=== PATIENT | female | born 1985 | race Hispanic/Latino ===

== ENCOUNTER 2016-07-22 07:14 | Emergency (ER) | payer MEDICAID ==
[2016-07-22 07:20] VITALS: TEMP 97; BMI 20.7
[2016-07-22] MEDS ORDERED: Sodium Chloride 0.9% 1,000 ML IV STA (08:07)
--- NOTE | 2016-07-22 08:23 | ED PDOC ---
Lower Extremity Pain/Injury Time Seen by Provider: 07/22/16 07:36 Chief Complaint (Nursing): Lower Extremity Problem/Injury Chief Complaint (Provider): Leg Swelling History Per: Patient History/Exam Limitations: no limitations Onset/Duration Of Symptoms: Days (1 week) Current Symptoms Are (Timing): Still Present Severity: Moderate Additional Complaint(s): Lizeth Bender is a 30 year old female, with a past medical history of ulcerative colitis, that presents to the emergency department complaining of leg swelling, that the patient has been experiencing for 1 week. Patient reports that she has noticed pain to her legs bilaterally for the past 3 weeks that has been keeping her up at night, and notes that her swelling has recently gone down, but is concerned due to her pain persisting and believes that she might have contracted a "staph" infection, prompting her visit to the emergency department. Associated fever (at 101), rhinorrhea, and a sore throat are currently present. PMD: none specified Past Medical History Reviewed: Historical Data, Nursing Documentation, Vital Signs Vital Signs: Last Vital Signs Temp 97 F L 07/22/16 07:19 Pulse 85 07/22/16 07:19 Resp BP 115/60 07/22/16 07:19 Pulse Ox 99 07/22/16 07:19 - Medical History PMH: Crohn's Disease Denies: Chronic Kidney Disease Other PMH: Ulcerative Colitis - Surgical History Surgical History: Appendectomy, Tonsillectomy - Family History Family History: States: No Known Family Hx - Social History Current smoker - smoking cessation education provided: No Ex-Smoker (has not smoked in the last 12 months): No Alcohol: None Drugs: Denies - Home Medications Home Medications: Ambulatory Orders Medication Instructions Recorded Cyclobenzaprine [Cyclobenzaprine 10 mg PO BID #15 tab 07/22/16 HCl] Ibuprofen [Motrin Tab] 600 mg PO Q6 #30 tab 07/22/16 - Allergies Allergies/Adverse Reactions: Allergies Allergy/AdvReac Type Severity Reaction Status Date / Time nut - unspecified Allergy RASH Verified 05/31/16 16:43 Penicillins Allergy RASH Verified 05/30/16 19:15 Review of Systems ROS Statement: Except As Marked, All Systems Reviewed And Found Negative Constitutional: Positive for: Fever ENT: Positive for: Nose Discharge (rhinorrhea, non-bloody), Throat Pain Cardiovascular: Positive for: Edema (b/l legs) Musculoskeletal: Positive for: Leg Pain (b/l) Physical Exam - Reviewed Nursing Documentation Reviewed: Yes Vital Signs Reviewed: Yes - Physical Exam Appears: Positive for: Non-toxic, No Acute Distress Head Exam: Positive for: ATRAUMATIC, NORMOCEPHALIC Skin: Positive for: Normal Color, Warm, Dry ENT: Positive for: Normal ENT Inspection, Pharynx Is (hyperemic), Pharyngeal Erythema. Negative for: Tonsillar Exudate, Tonsillar Swelling Neck: Positive for: Normal, Painless ROM Cardiovascular/Chest: Positive for: Regular Rate, Rhythm. Negative for: Murmur Respiratory: Positive for: Normal Breath Sounds. Negative for: Respiratory Distress Extremity: Positive for: Normal ROM, Tenderness, Calf Tenderness (b/l). Negative for: Swelling Neurologic/Psych: Positive for: Alert, Oriented - Laboratory Results Result Diagrams: 07/22/16 08:50 07/22/16 08:50 - ECG O2 Sat by Pulse Oximetry: 99 (RA) Pulse Ox Interpretation: Normal Medical Decision Making Medical Decision Makin:36 Initial Impression: r/o rhabdomyolysis versus deep vein thrombosis and muscle cramps Initial Plan: * CBC * BMP * BNP * CPK * UA * Influenza A/B * Flexeril 10 mg PO * Sodium Chloride 0.9% 1,000 ml IV, 500 mls/hr * Reevaluation 1030AM: Pt. sleeping. Workup negative. Told pt. to f/u w/ PMD, return precautions given- worsening of pain, high fevers, chills, swelling, etc. Scribe Attestation: Documented by Del Mayer, acting as a scribe for Garth Fox MD. Provider Scribe Attestation: All medical record entries made by the Scribe were at my direction and personally dictated by me. I have reviewed the chart and agree that the record accurately reflects my personal performance of the history, physical exam, medical decision making, and the department course for this patient. I have also personally directed, reviewed, and agree with the discharge instructions and disposition. Disposition - Clinical Impression Clinical Impression: Leg pain - Patient ED Disposition Is Patient to be Admitted: No - Disposition Referrals: [facility] [Outside] [facility] [Outside] Disposition: Routine/Home Disposition Time: 10:51 Condition: IMPROVED Prescriptions: Cyclobenzaprine [Cyclobenzaprine HCl] 10 mg PO BID #15 tab Ibuprofen [Motrin Tab] 600 mg PO Q6 #30 tab Instructions: Leg Pain (ED)
[2016-07-22 08:57] LABS: BASO # 0.1 K/uL (0.0-0.2); BASO % 1.2 % (0.0-2.0); EOS # 0.1 K/uL (0.0-0.7); EOS % 2.1 % (0.0-4.0); HEMATOCRIT 40.9 % (34.0-47.0); LYMPH # 1.6 K/uL (1.0-4.3); LYMPH % 31.5 % (20.0-40.0); MEAN CELL VOLUME 97.2 fl (81.0-99.0); MEAN CORPUSCULAR HEMOGLOBIN 33.2 pg (27.0-31.0); MEAN CORPUSCULAR HGB CONC 34.1 g/dL (33.0-37.0); MEAN PLATELET VOLUME 6.9 fl (7.2-11.7); MONO # 0.8 K/uL (0.0-0.8); MONO % 14.4 % (0.0-10.0); NEUT # 2.7 K/uL (1.8-7.0); NEUT % 50.8 % (50.0-75.0); NRBC % 0.1 % (0.0-0.0); RED CELL DISTRIBUTION WIDTH 14.8 % (11.5-14.5); WHITE BLOOD COUNT 5.2 K/uL (4.8-10.8)
[2016-07-22 09:05] LABS: BLOOD UREA NITROGEN 9 mg/dl (7-17); CALCIUM 9.9 mg/dL (8.4-10.2); CARBON DIOXIDE 23 mmol/L (22-30); CHLORIDE 105 mmol/L (98-107); GFR AFRICAN-AMERICAN > 60; GLUCOSE,RANDOM 92 mg/dL (65-105); POTASSIUM 4.1 MMOL/L (3.6-5.0); SODIUM 145 mmol/l (132-148)
[2016-07-22 09:33] LABS: RBC URINE 1 /hpf (0-3); URINE BILIRUBIN NEGATIVE (NEGATIVE); URINE BLOOD SMALL (NEGATIVE); URINE COLOR STRAW (YELLOW); URINE GLUCOSE (UA) NEG (Normal); URINE KETONE NEGATIVE (NEGATIVE); URINE LEUKOCYTE ESTERASE NEG Leu/uL (Negative); URINE PROTEIN NEGATIVE (NEGATIVE); URINE UROBILINOGEN 0.2-1.0 mg/dL (0.2-1.0); WBC URINE < 1 /hpf (0-5)
--- NOTE | 2016-07-22 10:11 | US ---
PROCEDURE: Bilateral lower extremity venous duplex Doppler. HISTORY: r/o DVT COMPARISON: None available. TECHNIQUE: Bilateral common femoral, superficial femoral, popliteal and posterior tibial veins were evaluated. Flow was assessed with color Doppler, compressibility, assessment of phasic flow and augmentation response. FINDINGS: COMMON FEMORAL VEIN: Right CFV: Unremarkable. Left CFV: Unremarkable. SUPERFICIAL FEMORAL VEIN: Right SFV: Unremarkable. Left SFV: Unremarkable. POPLITEAL VEIN: Right Popliteal: Unremarkable. Left Popliteal: Unremarkable. POSTERIOR TIBIAL VEIN: Right PTV: Unremarkable. Left PTV: Unremarkable. OTHER FINDINGS: None. IMPRESSION: No evidence of deep venous thrombosis.
[2016-07-22 11:10] VITALS: BP 118/75; PULSE 75; RESP 16; O2SAT 100
== END 2016-07-22 11:15 | disposition home or self-care (01) ==
LOC: H.ER 07:14
DX: R60.0 Localized edema (principal); K50.90 Crohn's disease, unspecified, without complications; Z87.891 Personal history of nicotine dependence; Z88.0 Allergy status to penicillin; J02.9 Acute pharyngitis, unspecified

== ENCOUNTER 2016-08-07 16:52 | Inpatient (IN) | payer MEDICAID ==
[2016-08-07 16:52] VITALS: BMI 20.7
--- NOTE | 2016-08-07 18:05 | ED PDOC ---
HPI:STROKE - Time Time: 17:18 - Historian Historian: Patient - Chief Complaint Chief Complaint: Numbness (right side: right side of her face, right upper arm, right thigh) - Onset Date: 08/07/16 Time: 08:00 Onset: Hours (10x hours prior to arrival) - Timing Timing: Currently Symptomatic, Constant - Context Context: Other (patient woke up with right sided numbness) - Location Locate right:: Face - Radiation Radiation: None - TPA Positive for Contraindication: Yes Reason tPA is not being Administered: out of window for TPA. - Notes: Notes:: 30 year old female with a pertinent medical history of ulcerative colitis (not taking medication for it) presents to the ED with complaints of right sided numbness that she noticed this morning when she woke up 10x hours prior to arrival. She reports having numbness on the right side of her face, her right upper arm, and her right thigh. She denies having paresthesias anywhere else. Noted: patient has right side facial asymmetry. She reports that the right side of her face feels stiff. She also reports having dizziness since this morning ( that also started when she woke up). She denies having a headache, difficulty with speech or ambulation, weakness of her right arm or leg, and chest pain. Of note: Patient also reports having bilateral leg pain and swelling for 2x month. She reports coming to the ED one time where her dopplers were negative for any abnormalities. Patient also mentions having rash all over her body for 1x month. She reports that it is not itchy and not painful. Patient was admitted to the ED this year for a UTI and colitis. Patient reports having travelled to [place] 2x months ago and leg swelling and rash started slowly after. PMD: Patient does not have a PMD. NIHSS Stroke Scale - Date/Time Evaluation Performed Date Performed: 08/07/16 Time Performed: 17:18 When Was NIHSS Performed: Baseline - How Severe is the Stroke Level of Consciousness: 0=Alert LOC to Questions: 0=Both comments correct LOC to commands: 0=Obeys both correctly Best Gaze: 0=Normal Visual: 0=No visual loss Facial: 1=Minor asymmetry Motor Arm - Left: 0=No drift Motor Arm - Right: 0=No drift Motor Leg - Left: 0=No drift Motor Leg - Right: 0=No drift Limb Ataxia: 0=Absent Sensory: 1=Mild to moderate loss Best Language: 0=No aphasia Dysarthia: 0=Normal articulation Extinction & Inattention (Neglect): 0=Normal, no object Score: 2 rTPA Inclusion/Exclusion - Refusal of Treatment Patient Refused Treatment: No - Inclusion Criteria for Altepase Patient is 18 years or Older: Yes The Clinical Diagnosis of Ischemic Stroke That is Causing a Potentially Disabling Neurological Deficit: Yes Time of Onset is Well Established to be Less Than 270 Minute Before Treatment Would Begin: No Risk/Benefit Discussed With Patient/Family Member Present: No Past Medical History Reviewed: Historical Data, Nursing Documentation, Vital Signs Vital Signs: Last Vital Signs Temp 97.9 F 08/07/16 17:09 Pulse 78 08/07/16 17:09 Resp 18 08/07/16 17:09 BP 125/86 08/07/16 17:09 Pulse Ox 100 08/07/16 17:09 - Medical History PMH: Crohn's Disease Denies: Chronic Kidney Disease Other PMH: ulcerative colitis - Surgical History Surgical History: Appendectomy, Tonsillectomy - Family History Family History: States: Unknown Family Hx - Social History Alcohol: None Drugs: Denies - Home Medications Home Medications: Ambulatory Orders Medication Instructions Recorded Cyclobenzaprine [Cyclobenzaprine 10 mg PO BID #15 tab 07/22/16 HCl] Ibuprofen [Motrin Tab] 600 mg PO Q6 #30 tab 07/22/16 - Allergies Allergies/Adverse Reactions: Allergies Allergy/AdvReac Type Severity Reaction Status Date / Time nut - unspecified Allergy RASH Verified 08/07/16 17:14 Penicillins Allergy RASH Verified 08/07/16 17:14 Review of Systems ROS Statement: Except As Marked, All Systems Reviewed And Found Negative Constitutional: Negative for: Fever Cardiovascular: Negative for: Chest Pain Musculoskeletal: Positive for: Leg Pain (bilateral leg pain) Skin: Positive for: Rash (all over body. not painfuk, not itchy.) Neurological: Positive for: Numbness (right side of patient's face, right upper arm, right thigh.), Dizziness. Negative for: Weakness, Change in Speech, Headache Physical Exam - Reviewed Nursing Documentation Reviewed: Yes Vital Signs Reviewed: Yes - Physical Exam Appears: Positive for: Well, Non-toxic, No Acute Distress Head Exam: Positive for: ATRAUMATIC, NORMOCEPHALIC Skin: Positive for: Warm, Dry, Rash (all over body. non erythematous. no macules , no pustules, no vesicles, no hives.) Eye Exam: Positive for: EOMI, PERRL. Negative for: Nystagmus ENT: Positive for: Normal ENT Inspection Neck: Positive for: Painless ROM, Supple Cardiovascular/Chest: Positive for: Regular Rate, Rhythm Respiratory: Positive for: Normal Breath Sounds. Negative for: Wheezing, Respiratory Distress Gastrointestinal/Abdominal: Positive for: Normal Exam, Soft. Negative for: Tenderness Extremity: Positive for: Normal ROM. Negative for: Swelling (legs not swollen) Neurologic/Psych: Positive for: Alert, Oriented (3x), Motor/Sensory Deficits, Cerebellar Tests (FTN normal), Gait (steady), Facial Droop (mild), Other ( decreased sensitivity to right side of te face. Mild facial assymmetry. weakness closing right eye. minor paralysis. Decreased sensation in right ar and right thigh.) - Laboratory Results Result Diagrams: 08/07/16 18:14 08/07/16 18:14 - ECG O2 Sat by Pulse Oximetry: 100 (RA) Pulse Ox Interpretation: Normal Medical Decision Making Medical Decision Makin:18 Initial impression: 30 year old female with right sided paresthesias. Differential diagnoses include but are not limited to CVA, MS, less likely but still considered Lawrence Palsy and peripheral neuropathy. Differential diagnoses for rash and leg swelling and pain include but are not limited to extraintestinal presentation of ulcerative colitis. Also consider West Nile virus and Lyme disease. Initial plan: * CT head w//o contrast * BMP * udip * CBC * lyme disease AB, IB * [place] AB, SER * urinalysis * reevaluation 18:49 CT head w/o IV contrast read and reviewed by radiologist. FINDINGS: Brain: No acute intracranial hemorrhage. No abnormal extra-axial fluid collection. No herniation. Patent basal cisterns. Preserved morton-white matter differentiation. No evidence of acute ischemia. No evident intracranial mass. Ventricles: No hydrocephalus. Bones/joints: No destructive calvarial lesion. Soft tissues: No acute findings. Sinuses: The imaged paranasal sinuses are clear. Mastoid air cells: The mastoid air cells are clear. Orbits: No evident acute abnormality of the intraorbital contents. IMPRESSION: No acute findings. If clinically warranted, Brain CT Perfusion or Brain MRI with diffusion-weighted imaging would be more sensitive for the detection of acute ischemia. 20:20] Discussed case and CT findings with (neurology felt carbonizer) who recommends the patient have an MRI (brain) and receive aspirin and steroids. Agree that she is not a candidate for TPA. Patient will be admitted under hospitalist Dr. Ray. Patient agrees to plan. Scribe Attestation: Documented by Monserrat Gibson, acting as a scribe for Vanna Farnsworth MD. Provider Scribe Attestation: All medical record entries made by the Scribe were at my direction and personally dictated by me. I have reviewed the chart and agree that the record accurately reflects my personal performance of the history, physical exam, medical decision making, and the department course for this patient. I have also personally directed, reviewed, and agree with the discharge instructions and disposition. Disposition - Clinical Impression Clinical Impression: Numbness on right side - Patient ED Disposition Is Patient to be Admitted: Yes Discussed With DrKaykay: Jayson Ray Doctor Will See Patient In The: ED Counseled Patient/Family Regarding: Studies Performed, Diagnosis - Disposition Disposition Time: 20:20 Condition: FAIR - Pt Status Changed To: Hospital Disposition Of: Observation - POA Present On Arrival: None
[2016-08-07 18:19] LABS: BASO # 0.1 K/uL (0.0-0.2); BASO % 1.5 % (0.0-2.0); EOS # 0.1 K/uL (0.0-0.7); EOS % 1.1 % (0.0-4.0); HEMATOCRIT 39.2 % (34.0-47.0); LYMPH # 1.1 K/uL (1.0-4.3); LYMPH % 21.4 % (20.0-40.0); MEAN CELL VOLUME 97.4 fl (81.0-99.0); MEAN CORPUSCULAR HEMOGLOBIN 32.5 pg (27.0-31.0); MEAN CORPUSCULAR HGB CONC 33.3 g/dL (33.0-37.0); MEAN PLATELET VOLUME 6.9 fl (7.2-11.7); MONO # 0.5 K/uL (0.0-0.8); MONO % 9.5 % (0.0-10.0); NEUT # 3.4 K/uL (1.8-7.0); NEUT % 66.5 % (50.0-75.0); NRBC % 0.3 % (0.0-0.0); RED CELL DISTRIBUTION WIDTH 15.1 % (11.5-14.5); WHITE BLOOD COUNT 5.1 K/uL (4.8-10.8)
[2016-08-07 18:22] LABS: RBC URINE 3 /hpf (0-3); URINE BACTERIA OCC (<OCC); URINE BILIRUBIN NEGATIVE (NEGATIVE); URINE BLOOD NEGATIVE (NEGATIVE); URINE COLOR YELLOW (YELLOW); URINE GLUCOSE (UA) NEG (Normal); URINE KETONE NEGATIVE (NEGATIVE); URINE LEUKOCYTE ESTERASE NEG Leu/uL (Negative); URINE PROTEIN NEGATIVE (NEGATIVE); URINE UROBILINOGEN 0.2-1.0 mg/dL (0.2-1.0); WBC URINE 2 /hpf (0-5)
[2016-08-07 18:25] LABS: CHLORIDE 99 mmol/L (98-107)
[2016-08-07 18:26] LABS: SODIUM 140 mmol/l (132-148)
[2016-08-07 18:28] LABS: GFR AFRICAN-AMERICAN > 60
[2016-08-07 18:29] LABS: BLOOD UREA NITROGEN 12 mg/dl (7-17); CALCIUM 10.2 mg/dL (8.4-10.2); CARBON DIOXIDE 22 mmol/L (22-30); GLUCOSE,RANDOM 82 mg/dL (65-105)
[2016-08-07 18:35] LABS: POTASSIUM 6.3 MMOL/L (3.6-5.0)
--- NOTE | 2016-08-07 21:32 | CP.PCM.HP ---
History of Present Illness - History of Present Illness History of Present Illness: PCP: None Chief Complaint: Numbness to Right face, upper and lower extremities HPI: 30 years old female who travelled to [place] 2 months ago has Hx of ulcerative Colitis not on medication, UTI and Cervical cancer s/p Radio and Chemo therapy, comes with a one day hx of constant Numbness to the right face, right upper extremity and the right thigh. She awoke with dizziness, the numbness and blurring of the right eye. She has been having painful rashes that appear and disappear to both calf muscles with swelling at the right side for months. Also she refers easily bruising, Stool with blood and breast milk production. No headaches, facial droop, abnormal speech , fever, nor weakness. PMH: Ulcerative Colitis not on medication: Aspiration Pneumonia in 2007; Cervical cancer dx 2012 with 35 radiation treatment and 2 cycles of Chemotherapy , and in Remission 2014 PSH: Appendectomy< Tonsillectomy SH: No cigaret smoking; occasional Alcohol; No illegal drugs; Live alone; works as a recuitor and immigrant outbound sales consultant FH: No known family history Allergies: PCN; Nuts Present on Admission - Present on Admission Any Indicators Present on Admission: No History of DVT/PE: No History of Uncontrolled Diabetes: No Urinary Catheter: No Decubitus Ulcer Present: No Review of Systems - Constitutional Constitutional: absent: Anorexia, Chills, Fatigue, Fever, Frequent Falls, Headache, Weakness - EENT Eyes: Blurred Vision. absent: Diplopia, Floaters, Requires Corrective Lenses, Sees Flashes Ears: absent: Decreased Hearing, Ear Discharge, Ear Pain, Tinnitus Nose/Mouth/Throat: absent: Epistaxis, Nasal Congestion, Nasal Discharge, Sinus Pain, Sinus Pressure - Breasts Breasts: Nipple Discharge - Cardiovascular Cardiovascular: Dyspnea, Palpitations. absent: Chest Pain - Respiratory Respiratory: Dyspnea. absent: Cough, Wheezing, Chest Congestion - Gastrointestinal Gastrointestinal: Hematochezia. absent: Abdominal Pain, Constipation, Diarrhea , Nausea, Vomiting - Genitourinary Genitourinary: absent: Dysuria, Flank Pain, Hematuria - Musculoskeletal Musculoskeletal: Myalgias, Numbness. absent: Back Pain - Integumentary Integumentary: Rash, Skin Pain, Swelling. absent: Skin Ulcer, Sores, Striae Additional comments: swelling of the right calf muscle - Neurological Neurological: Dizziness. absent: Confusion, Focal Weakness, Headaches - Psychiatric Psychiatric: absent: Anxiety, Depression, Panic Attacks - Endocrine Endocrine: absent: Palpitations, Polydipsia, Polyphagia, Polyuria - Hematologic/Lymphatic Hematologic: Easy Bruising Past Patient History - Past Medical History & Family History Past Medical History?: Yes - Past Social History Smoking Status: Light Smoker < 10 Cigarettes Daily Chewing Tobacco Use: No Cigar Use: No Alcohol: None Drugs: Denies Home Situation {Lives}: Alone - CARDIAC Hx Cardiac Disorders: No - PULMONARY Hx Respiratory Disorders: No - NEUROLOGICAL Hx Neurological Disorder: No - HEENT Hx HEENT Problems: No - RENAL Hx Chronic Kidney Disease: No - ENDOCRINE/METABOLIC Hx Endocrine Disorders: No - HEMATOLOGICAL/ONCOLOGICAL Hx Blood Disorders: No - INTEGUMENTARY Hx Dermatological Problems: No - MUSCULOSKELETAL/RHEUMATOLOGICAL Hx Musculoskeletal Disorders: No Hx Falls: No - GASTROINTESTINAL Hx Colitis: Yes (Ulcerative colitis) - GENITOURINARY/GYNECOLOGICAL Hx Genitourinary Disorders: Yes Hx Cervical Cancer: Yes (NOVEMBER 06 2012, REMISSION JULY OF 2014) - PSYCHIATRIC Hx Psychophysiologic Disorder: No Hx Substance Use: No - SURGICAL HISTORY Hx Appendectomy: Yes Hx Tonsillectomy: Yes - ANESTHESIA Hx Anesthesia: Yes Hx Anesthesia Reactions: No Hx Malignant Hyperthermia: No Meds Allergies/Adverse Reactions: Allergies Allergy/AdvReac Type Severity Reaction Status Date / Time nut - unspecified Allergy RASH Verified 08/07/16 17:14 Penicillins Allergy RASH Verified 08/07/16 17:14 Physical Exam - Constitutional Appears: No Acute Distress - Head Exam Head Exam: ATRAUMATIC, NORMAL INSPECTION, NORMOCEPHALIC - Eye Exam Eye Exam: EOMI, Normal appearance Pupil Exam: NORMAL ACCOMODATION, PERRL - ENT Exam ENT Exam: Mucous Membranes Moist, Normal Exam, Normal External Ear Exam, Normal Oropharynx - Neck Exam Neck exam: Positive for: Full Rom, Normal Inspection. Negative for: Lymphadenopathy, Tenderness - Respiratory Exam Respiratory Exam: Clear to Auscultation Bilateral. absent: Rales, Rhonchi, Wheezes - Cardiovascular Exam Cardiovascular Exam: REGULAR RHYTHM, RRR, +S1, +S2. absent: Gallop, JVD - GI/Abdominal Exam GI & Abdominal Exam: Normal Bowel Sounds, Soft. absent: Mass, Organomegaly, Tenderness - Rectal Exam Rectal Exam: Deferred - Extremities Exam Extremities exam: Positive for: calf tenderness, full ROM. Negative for: pedal edema - Back Exam Back exam: NORMAL INSPECTION. absent: CVA tenderness (L), CVA tenderness (R) - Neurological Exam Neurological exam: Alert, CN II-XII Intact, Oriented x3, Reflexes Normal - Psychiatric Exam Psychiatric exam: Normal Affect, Normal Mood - Skin Skin Exam: Dry, Intact, Warm Additional comments: Non blanching Erythematous-papular rash diffuse at both calf muscles. Right shoulder with area healing Ecchymosis 8cm the largest diameter. Posterior left hand with erythema 2cm in diameter, non blanching, non tender. Results - Vital Signs Recent Vital Signs: Last Vital Signs Temp 97.9 F 08/07/16 17:09 Pulse 80 08/07/16 21:20 Resp 18 08/07/16 17:09 BP 121/77 08/07/16 21:20 Pulse Ox 100 08/07/16 21:18 - Labs Result Diagrams: 08/07/16 18:14 08/08/16 01:00 - Imaging and Cardiology CT scan - head Status: Report reviewed by me Additional comment: No Acute finding. Assessment & Plan - Assessment and Plan (Free Text) Assessment: #. Right side Paresthesias #. Ulcerative Colitis #. Skin Rashes #. Breast Milk Production #. hx ov Cervical cancer Plan: 30 years old female who travelled to [place] 2 months ago has Hx of ulcerative Colitis, Cervical cancer s/p Radio and Chemo therapy, comes with a one day hx of constant Numbness to the right face, right upper extremity and the right thigh. She awoke with dizziness, the numbness and blurring of the right eye. #. Right side Paresthesias with blurring right eye. r/o CVA vs Multiple sclerosis. Electrolyte abnormality less likely - Consult Dr Awad neurology - Neurology Ordered Acyclovir and steroid - MRI brain for the AM #. Ulcerative Colitis not on treatment - Consult Dr Castro GI #. Transaminitis - Follow LFT #. Skin Rashes most probably secondary to the Ulcerative colitis - Patient started on steroids #. Breast Milk Production. Etiology unclear - MRI of Brain will show if Pituitary tumor is present - Follow Prolactin level #. hx of Cervical cancer s/p Chemo and Radio therapy #. DVT Prophylaxis with SCD #.Code status: Ful - Date & Time Date: 08/07/16 Time: 21:32
[2016-08-08 01:35] LABS: ALB/GLOB RATIO 1.3 (1.0-2.1); BILIRUBIN,TOTAL 0.7 mg/dl (0.2-1.3); POTASSIUM 3.8 MMOL/L (3.6-5.0); TOTAL PROTEIN 9.8 G/DL (6.3-8.2)
[2016-08-08 08:42] LABS: ALB/GLOB RATIO 1.3 (1.0-2.1); ALKALINE PHOSPHATASE 110 U/L (38-126); ALT/SGPT 101 U/L (9-52); AST/SGOT 156 U/L (14-36); BILIRUBIN,TOTAL 0.9 mg/dl (0.2-1.3); BLOOD UREA NITROGEN 15 mg/dl (7-17); CALCIUM 10.5 mg/dL (8.4-10.2); CARBON DIOXIDE 24 mmol/L (22-30); CHLORIDE 97 mmol/L (98-107); GFR AFRICAN-AMERICAN > 60; GLUCOSE,RANDOM 128 mg/dL (65-105); POTASSIUM 4.8 MMOL/L (3.6-5.0); SODIUM 139 mmol/l (132-148); TOTAL PROTEIN 9.8 G/DL (6.3-8.2)
--- NOTE | 2016-08-08 08:49 | CT ---
PROCEDURE: CT HEAD WITHOUT CONTRAST. HISTORY: numbness on right side COMPARISON: None available. TECHNIQUE: Axial computed tomography images were obtained through the head/brain without intravenous contrast. Radiation dose: Total exam DLP = 877.46 mGy-cm. This CT exam was performed using one or more of the following dose reduction techniques: Automated exposure control, adjustment of the mA and/or kV according to patient size, and/or use of iterative reconstruction technique. FINDINGS: HEMORRHAGE: No intracranial hemorrhage. BRAIN: No mass effect or edema. No atrophy or chronic microvascular ischemic changes. VENTRICLES: Unremarkable. No hydrocephalus. CALVARIUM: Unremarkable. PARANASAL SINUSES: Unremarkable as visualized. No significant inflammatory changes. MASTOID AIR CELLS: Unremarkable as visualized. No inflammatory changes. OTHER FINDINGS: None. IMPRESSION: No acute intracranial abnormalities. No significant findings to account for the clinical presentation. Concordant results (preliminary interpretation) provided by [facility]. Procedure Completed: 18:17. Preliminary ([facility]) Report: Dictated and Authenticated: 18:38. Final Interpretation: 08:27. August 08, 2016.
[2016-08-08 09:11] LABS: THYROID STIMULATING HORMONE 1.03 mIU/ML (0.46-4.68)
--- NOTE | 2016-08-08 11:11 | CP.PCM.PN ---
Subjective - Date & Time of Evaluation Date of Evaluation: 08/08/16 Time of Evaluation: 10:30 - Subjective Subjective: No fever no headache still with right sided numbness some decrease vision on the right no CP no SOB no abd pain no abnormal vaginal dicharge feels generalized aches Objective - Vital Signs/Intake and Output Vital Signs (last 24 hours): Temp Pulse Resp BP Pulse Ox 97.3 F L 73 18 101/66 99 08/08/16 07:54 08/08/16 07:54 08/08/16 07:54 08/08/16 07:54 08/08/16 07:54 - Medications Medications: Current Medications Acetaminophen (Tylenol 325mg Tab) 650 mg PO Q4 PRN PRN Reason: Pain, Mild (1-3) Last Admin: 08/08/16 00:55 Dose: 650 mg Acyclovir (Zovirax) 800 mg PO 5XD [facility] Last Admin: 08/08/16 08:18 Dose: 800 mg Alprazolam (Xanax) 0.25 mg PO ONCE ONE Stop: 08/08/16 11:10 Aspirin (Ecotrin) 81 mg PO DAILY [facility] Last Admin: 08/08/16 08:21 Dose: 81 mg Tramadol HCl (Ultram) 50 mg PO Q4 PRN PRN Reason: Pain, moderate (4-7) Last Admin: 08/08/16 08:17 Dose: 50 mg - Labs Labs: 08/08/16 08:00 PT 9.8 SECONDS (9.6-11.2) 08/08/16 01:00 INR 0.94 (0.92-1.08) 08/08/16 01:00 APTT 27.0 SECONDS (23.3-32.5) 08/08/16 01:00 - Constitutional Appears: No Acute Distress - Head Exam Head Exam: NORMAL INSPECTION, NORMOCEPHALIC - Eye Exam Eye Exam: EOMI, Normal appearance, PERRL Pupil Exam: NORMAL ACCOMODATION - ENT Exam ENT Exam: Mucous Membranes Moist, Normal External Ear Exam - Neck Exam Neck Exam: Full ROM. absent: Meningismus - Respiratory Exam Respiratory Exam: NORMAL BREATHING PATTERN. absent: Respiratory Distress - Cardiovascular Exam Cardiovascular Exam: REGULAR RHYTHM, +S1, +S2 - GI/Abdominal Exam GI & Abdominal Exam: Soft, Normal Bowel Sounds. absent: Tenderness - Extremities Exam Extremities Exam: Full ROM, Normal Capillary Refill. absent: Calf Tenderness, Pedal Edema - Back Exam Back Exam: Full ROM, NORMAL INSPECTION. absent: CVA tenderness (L), CVA tenderness (R), paraspinal tenderness, vertebral tenderness - Neurological Exam Neurological Exam: Alert - Psychiatric Exam Psychiatric exam: Anxious, Normal Affect, Normal Mood - Skin Skin Exam: Dry, Normal Color, Warm Additional comments: Some LE papular rash Assessment and Plan - Assessment and Plan (Free Text) Assessment: 30 years old female who travelled to [place] 2 months ago has Hx of ulcerative Colitis, Cervical cancer s/p Radio and Chemo therapy, comes with a 3days hx of constant Numbness to the right face, right upper extremity and the right thigh. She awoke with dizziness, the numbness and blurring of the right eye. #. Right sided Numbness with blurring right eye- needs further work up to determine etiology - Consult Dr Awad neurology - Neurology Ordered Acyclovir and steroid - MRI brain : negative - check HIV, B12, Folate, RPR, TSH -Lyme ab, West Nile ab, #. Ulcerative Colitis not on treatment - Consulted Dr Castro GI- discussed case , rec to ff up as outpt for further work up #. Transaminitis prob related to ETOH pt admits to having large amount of alcohol for 2 days prior to admission - Follow LFT - Hepatitis screen - US of abd - GI consulted #. Skin Rashes most probably secondary to the Ulcerative colitis - Patient started on steroids #. Breast Milk Production. Etiology unclear - MRI of Brain: neg pituitary tumor - Follow Prolactin level #. hx of Cervical cancer s/p Chemo and Radio therapy #. DVT Prophylaxis with SCD
--- NOTE | 2016-08-08 12:00 | MRI ---
PROCEDURE: MRI BRAIN WITHOUT CONTRAST HISTORY: numbness rihgt sided COMPARISON: None. TECHNIQUE: Multiplanar, multisequence MR images of the brain were obtained without intravenous contrast enhancement. FINDINGS: HEMORRHAGE: None DWI: No evidence of an acute or early subacute infarction. BRAIN PARENCHYMA: No mass effect or edema. No atrophy or chronic microvascular ischemic changes. VENTRICLES: Unremarkable. No hydrocephalus. CRANIUM: Unremarkable. ORBITS: Grossly unremarkable. PARANASAL SINUSES/MASTOIDS: Clear VASCULAR SYSTEM: Skull base flow voids intact. OTHER FINDINGS: None. IMPRESSION: Unremarkable non contrast enhanced MRI of the brain.
[2016-08-09 07:16] LABS: BASO % 0.7 % (0.0-2.0); EOS # 0.1 K/uL (0.0-0.7); EOS % 1.6 % (0.0-4.0); HEMATOCRIT 40.5 % (34.0-47.0); LYMPH # 1.6 K/uL (1.0-4.3); MEAN CELL VOLUME 97.9 fl (81.0-99.0); MEAN CORPUSCULAR HEMOGLOBIN 32.9 pg (27.0-31.0); MEAN CORPUSCULAR HGB CONC 33.6 g/dL (33.0-37.0); MEAN PLATELET VOLUME 7.5 fl (7.2-11.7); MONO # 0.4 K/uL (0.0-0.8); MONO % 6.8 % (0.0-10.0); NEUT # 3.5 K/uL (1.8-7.0); NEUT % 61.9 % (50.0-75.0); NRBC % 0.1 % (0.0-0.0); RED CELL DISTRIBUTION WIDTH 14.8 % (11.5-14.5); WHITE BLOOD COUNT 5.6 K/uL (4.8-10.8)
[2016-08-09 07:26] LABS: ALB/GLOB RATIO 1.4 (1.0-2.1); ALKALINE PHOSPHATASE 82 U/L (38-126); ALT/SGPT 91 U/L (9-52); AST/SGOT 142 U/L (14-36); BLOOD UREA NITROGEN 19 mg/dl (7-17); CARBON DIOXIDE 30 mmol/L (22-30); CHLORIDE 95 mmol/L (98-107); GFR AFRICAN-AMERICAN > 60; GLUCOSE,RANDOM 108 mg/dL (65-105); POTASSIUM 4.2 MMOL/L (3.6-5.0); SODIUM 140 mmol/l (132-148); TOTAL PROTEIN 8.6 G/DL (6.3-8.2)
--- NOTE | 2016-08-09 08:33 | CON ---
DATE: 08/08/2016 REFERRING PHYSICIAN: Dr. Mcpherson REASON FOR CONSULTATION: History of UC ____ diarrhea. This is a ellis 30-year-old female with history of recent travel to [place] about a couple months ago , has questionable history of UC, never been diagnosed, had cervical CA and radiation, UTIs. Now com es in with essentially ____ blurring of the right eye. Currently, her bowel movements have been the same for the past few months. No ____ bright red blood. Lying in bed, comfortable, in no apparent d istress. PAST MEDICAL HISTORY: As above. PAST SURGICAL HISTORY: As above. MEDICATIONS: Have been reviewed. All other systems have been reviewed and negative apart from the HPI. PHYSICAL EXAMINATION: VITAL SIGNS: Here in the hospital, grossly unremarkable. GENERAL: Pleasant, young female, lying in bed, comfortable, in no apparent distress. HEAD: Normocephalic, atraumatic. EYES: Pupils equally reactive to light bilaterally. No conjunctival pallor or icterus. NECK: Supple. Normal range of motion. No lymphadenopathy appreciated. LUNGS: Coarse breath sounds bilaterally. HEART: S1, S2, regular rate and rhythm, no murmurs. ABDOMEN: Soft, nontender, bowel sounds present. No rebound, no guarding. RECTAL: Deferred. EXTREMITIES: Pulses present bilaterally. SKIN: Warm, dry and intact. NEUROLOGIC: Alert and oriented x 3. LABORATORIES: Have been reviewed. WBCs 5.____, hemoglobin 13.____, hematocrit 39.2. INR is normal. LFTs are ____. ASSESSMENT AND PLAN: This is a 30-year-old female with questionable ulcerative colitis. Plan for ou tpatient colonoscopy. For now, MRI pending. Thank you for the consult. Roger Castro MD, PhD cc:Zully Flor MD [id number] TT: 08/08/2016 14:31:49 Confirmation # [id number] Dictation # [id number] en
[2016-08-09] MEDS ORDERED: Prenatal Multivit/Folic Acid/Iron Tab PO SCH (09:00)
--- NOTE | 2016-08-09 09:19 | CP.PCM.PN ---
Objective - Vital Signs/Intake and Output Vital Signs (last 24 hours): Temp Pulse Resp BP Pulse Ox 98.7 F 69 18 98/63 L 99 08/09/16 08:13 08/09/16 08:13 08/09/16 08:13 08/09/16 08:13 08/09/16 08:13 - Medications Medications: Current Medications Acetaminophen (Tylenol 325mg Tab) 650 mg PO Q4 PRN PRN Reason: Pain, Mild (1-3) Last Admin: 08/08/16 00:55 Dose: 650 mg Acyclovir (Zovirax) 800 mg PO 5XD [facility] Last Admin: 08/09/16 04:58 Dose: 800 mg Aspirin (Ecotrin) 81 mg PO DAILY [facility] Last Admin: 08/08/16 08:21 Dose: 81 mg Multivit/Folic Acid/Iron () 1 tab PO DAILY [facility] Tramadol HCl (Ultram) 50 mg PO Q4 PRN PRN Reason: Pain, moderate (4-7) Last Admin: 08/09/16 04:57 Dose: 50 mg - Labs Labs: 08/09/16 05:25 08/09/16 05:25 PT 9.8 SECONDS (9.6-11.2) 08/08/16 01:00 INR 0.94 (0.92-1.08) 08/08/16 01:00 APTT 27.0 SECONDS (23.3-32.5) 08/08/16 01:00
--- NOTE | 2016-08-09 10:48 | CON ---
DATE: 08/09/2016 REASON FOR CONSULTATION: Numbness of the right side. HISTORY OF PRESENTING ILLNESS: The patient is a 30-year-old female who came to the Emergency Room wi th complaint of right-sided numbness. This started about 2 days when she woke up. She started notic ing numbness in the right upper extremity on the right upper arm as well as right side of the face an d the right upper thigh laterally. She has these tingling sensations in these regions. She still fe els tingly on and off. She had some dizziness which is better now. She denies any focal weakness in arms or legs. She also complains that she has been feeling very tired and has some memory issues. Denies any other complaints. REVIEW OF SYSTEMS: Denies any headache, chest pain, shortness of breath, abdominal pain, constipatio n, diarrhea, dysuria, pyuria, cough, sputum production, skin rash, hallucinations. PAST MEDICAL HISTORY: Includes ulcerative colitis. MEDICATIONS AT HOME: None. CURRENT MEDICATIONS: Include aspirin, vitamin, tramadol, Tylenol p.r.n. and acyclovir. ALLERGIES: PENICILLIN AND NUTS. SOCIAL HISTORY: She denies smoking. Socially drinks alcohol. Denies use of any illicit drugs. FAMILY HISTORY: Reviewed and noncontributory to the case. PHYSICAL EXAMINATION: GENERAL: The patient is a young, pleasant female, lying on the bed, in no acute distress. VITAL SIGNS: Her blood pressure is 98/63, heart rate is 69 per minute, breathing at a rate of 16 per minute, temperature is 98.7 degrees Fahrenheit. HEENT: Head is normocephalic, atraumatic. NECK: Supple. There are no carotid bruits. LUNGS: Clear. CARDIOVASCULAR: S1, S2 audible. No murmurs. ABDOMEN: Soft and nontender, bowel sounds present. NEUROLOGIC EXAMINATION: MENTAL STATUS: The patient is awake, alert, oriented to time, place, person. Speech is fluent. Nam ing and repetition normal. Memory and cognition are intact. CRANIAL NERVES: Pupils are 4 mm bilaterally, reactive to light. Visual villagran are full. Extraocula r movements are intact. There is no facial asymmetry. Palate is upgoing bilaterally and tongue is m idline. MOTOR: Tone is normal. Power is 5/5 bilaterally in all extremities. Reflexes +2 and symmetrical. Plantars downgoing bilaterally. CEREBELLAR: [id number] shows no dysmetria. LABORATORIES: Reviewed, shows WBC of 5.6, hemoglobin 13.6, hematocrit 40.5 and platelets of 257. He r sodium is 140, potassium 4.2, chloride 95, carbon dioxide 30, BUN of 19, creatinine 0.8, and glucos e of 108. She had MRI of the brain, which shows unremarkable noncontrast enhanced MRI of the brain. IMPRESSION: 1. Tingling and numbness sensation in the right face and arm and leg. Rule out any cervical spine p athology responsible for patient's symptoms. 2. Status post dizziness, which is all better. RECOMMENDATIONS: 1. The patient to have MRI of the cervical spine without contrast. 2. If patient's symptoms continue, consider starting Neurontin, initially at 100 mg twice a day. 3. The patient also had TSH done, which is normal. Her vitamin B12 is 604. 4. Please continue other treatment and supportive care and if MRI of the cervical spine is negative, then she may be discharged with outpatient followup. Thank you for the opportunity to participate in the care of the patient. Gabe Talavera MD cc: [id number] TT: 08/09/2016 10:47:29 Confirmation # [id number] Dictation # [id number] en
--- NOTE | 2016-08-09 12:29 | US ---
HISTORY: Elevated LFT COMPARISON: None. TECHNIQUE: Sonographic evaluation of the right upper quadrant of the abdomen. FINDINGS: LIVER: Measures 17.4 cm in length. Hepatopedal blood flow. Fatty infiltration manifest ultrasonographically as increased echogenicity of the liver parenchyma. No mass. No intrahepatic bile duct dilatation. GALLBLADDER: Unremarkable. No gallstones. COMMON BILE DUCT: Measures 2.6 mm. No stones. No dilatation. PANCREAS: Unremarkable as visualized. No mass. No ductal dilatation. RIGHT KIDNEY: Measures 4.3 x 10.0 cm in length. Normal echogenicity. No calculus, mass, or hydronephrosis. AORTA: No aneurysmal dilatation. IVC: Unremarkable. OTHER FINDINGS: None . IMPRESSION: Hepatic steatosis. Otherwise no acute/ significant findings.
[2016-08-09 15:28] LABS: 18 KD (IGG) BAND Nonreactive; 23 KD (IGG) BAND Nonreactive; 23 KD (IGM) BAND Nonreactive; 28 KD (IGG) BAND Nonreactive; 30 KD (IGG) BAND Nonreactive; 39 KD (IGG) BAND Nonreactive; 39 KD (IGM) BAND Nonreactive; 41 KD (IGG) BAND Reactive; 41 KD (IGM) BAND Nonreactive; 45 KD (IGG) BAND Nonreactive; 58 KD (IGG) BAND Nonreactive; 66 KD (IGG) BAND Reactive; 93 KD (IGG) BAND Nonreactive; LYME DISEASE INTERP (IGG) Negative (Negative)
--- NOTE | 2016-08-09 15:55 | MRI ---
PROCEDURE: MR cervical spine 08/09/2016. HISTORY: Numbness. COMPARISON: No prior study available for comparison TECHNIQUE: Multiecho multiplanar sequences were performed through the cervical spine without the use of intravenous contrast. Note that the examination is limited by motion artifact. FINDINGS: The current study reveals no acute compression fractures no retropulsed fragments. The vertebral bodies exhibit normal stature. Vertebral bodies and facets normally aligned. Mild disc desiccation seen at the C2-C3 level. No disc herniation nor significant disc bulge. The central canal and exit foramina are adequate. At the C3-C4 level, there is adequate disc height and hydration. No disc herniation or significant disc bulge. The left facet joint is mildly overgrown compared the right side. The overall central canal and exit foramina adequate at this level. There is adequate disc height and hydration C4-C5 level. No disc herniation or significant disc bulge. Central canal and exit foramina appear adequate. At the C5-C6 level, there is minor age related disc desiccation with small central and bilateral disc bulge that indents the ventral surface of the thecal sac though does not cause significant canal compromise nor cord compression. The facets are slightly overgrown more so on the left side. Central canal and exit foramina appear adequate. At the C6-C7 level, there is adequate disc height and hydration. No disc herniation or significant disc bulge. Central canal and exit foramina are adequate. No intrinsic signal changes are seen within the visualized spinal cord. Cervicomedullary junction unremarkable. Impression: Limited motion degraded study. No acute compression fractures. Very minor disc bulging changes seen at the C5-C6 and C6-C7 levels without canal -foraminal stenosis or cord compression.
[2016-08-09 16:03] VITALS: BP 105/71; PULSE 78; RESP 20; TEMP 98.4; O2SAT 99
--- NOTE | 2016-08-09 16:53 | CP.PCM.DIS ---
Provider - Provider Date of Admission: 08/08/16 15:24 Attending physician: Jayson Ray Consults: GI: Dr Castro Neuro: Dr Talavera Time Spent in preparation of Discharge (in minutes): 35 Diagnosis - Discharge Diagnosis (1) Numbness on right side Status: Acute (2) IBD (inflammatory bowel disease) Status: Chronic (3) Abnormal LFTs (liver function tests) Status: Acute Hospital Course - Lab Results Lab Results: Most Recent Lab Values WBC 5.6 K/uL (4.8-10.8) 08/09/16 05:25 RBC 4.14 Mil/uL (3.80-5.20) 08/09/16 05:25 Hgb 13.6 g/dL (12.0-16.0) 08/09/16 05:25 Hct 40.5 % (34.0-47.0) 08/09/16 05:25 MCV 97.9 fl (81.0-99.0) 08/09/16 05:25 MCH 32.9 pg (27.0-31.0) H 08/09/16 05:25 MCHC 33.6 g/dL (33.0-37.0) 08/09/16 05:25 RDW 14.8 % (11.5-14.5) H 08/09/16 05:25 Plt Count 257 K/uL (130-400) 08/09/16 05:25 MPV 7.5 fl (7.2-11.7) 08/09/16 05:25 Neut % (Auto) 61.9 % (50.0-75.0) 08/09/16 05:25 Lymph % (Auto) 29.0 % (20.0-40.0) 08/09/16 05:25 [place] % (Auto) 6.8 % (0.0-10.0) 08/09/16 05:25 Eos % (Auto) 1.6 % (0.0-4.0) 08/09/16 05:25 Baso % (Auto) 0.7 % (0.0-2.0) 08/09/16 05:25 Neut # 3.5 K/uL (1.8-7.0) 08/09/16 05:25 Lymph # 1.6 K/uL (1.0-4.3) 08/09/16 05:25 [place] # 0.4 K/uL (0.0-0.8) 08/09/16 05:25 Eos # 0.1 K/uL (0.0-0.7) 08/09/16 05:25 Baso # 0.0 K/uL (0.0-0.2) 08/09/16 05:25 PT 9.8 SECONDS (9.6-11.2) 08/08/16 01:00 INR 0.94 (0.92-1.08) 08/08/16 01:00 APTT 27.0 SECONDS (23.3-32.5) 08/08/16 01:00 Sodium 140 mmol/l (132-148) 08/09/16 05:25 Potassium 4.2 MMOL/L (3.6-5.0) 08/09/16 05:25 Chloride 95 mmol/L (98-107) L 08/09/16 05:25 Carbon Dioxide 30 mmol/L (22-30) 08/09/16 05:25 Anion Gap 19 (10-20) 08/09/16 05:25 BUN 19 mg/dl (7-17) H 08/09/16 05:25 Creatinine 0.8 mg/dL (0.7-1.2) 08/09/16 05:25 Est GFR ( Amer) > 60 08/09/16 05:25 Est GFR (Non-Af Amer) > 60 08/09/16 05:25 Random Glucose 108 mg/dL (65-105) H 08/09/16 05:25 Calcium 10.0 mg/dL (8.4-10.2) 08/09/16 05:25 Total Bilirubin 1.0 mg/dl (0.2-1.3) 08/09/16 05:25 Direct Bilirubin 0.3 mg/ml (0.0-0.4) 08/08/16 01:00 AST 142 U/L (14-36) H 08/09/16 05:25 ALT 91 U/L (9-52) H 08/09/16 05:25 Alkaline Phosphatase 82 U/L (38-126) 08/09/16 05:25 Total Protein 8.6 G/DL (6.3-8.2) H 08/09/16 05:25 Albumin 5.0 g/dL (3.5-5.0) 08/09/16 05:25 Globulin 3.6 gm/dL (2.2-3.9) 08/09/16 05:25 Albumin/Globulin Ratio 1.4 (1.0-2.1) 08/09/16 05:25 Vitamin B12 604 pg/mL (239-931) 08/08/16 08:00 Folate 11.0 ng/mL 08/08/16 08:00 TSH 3rd Generation 1.03 mIU/ML (0.46-4.68) 08/08/16 08:00 Prolactin 14.0 ng/mL (3.0-18.9) 08/08/16 08:00 Urine Color Yellow (YELLOW) 08/07/16 18:14 Urine Clarity Slighty-cloudy (Clear) 08/07/16 18:14 Urine pH 7.0 (5.0-8.0) 08/07/16 18:14 Ur Specific [place]gan 1.010 (1.003-1.030) 08/07/16 18:14 Urine Protein Negative mg/dL (NEGATIVE) 08/07/16 18:14 Urine Glucose (UA) Neg mg/dL (Normal) 08/07/16 18:14 Urine Ketones Negative mg/dL (NEGATIVE) 08/07/16 18:14 Urine Blood Negative (NEGATIVE) 08/07/16 18:14 Urine Nitrate Negative (NEGATIVE) 08/07/16 18:14 Urine Bilirubin Negative (NEGATIVE) 08/07/16 18:14 Urine Urobilinogen 0.2-1.0 mg/dL (0.2-1.0) 08/07/16 18:14 Ur Leukocyte Esterase Neg Mariel/uL (Negative) 08/07/16 18:14 Urine RBC (Auto) 3 /hpf (0-3) 08/07/16 18:14 Urine Microscopic WBC 2 /hpf (0-5) 08/07/16 18:14 Ur Squamous Epith Cells 14 /hpf (0-5) H 08/07/16 18:14 Urine Bacteria Occ (<OCC) H 08/07/16 18:14 Urine HCG, Qual Negative (NEGATIVE) 08/08/16 08:38 RPR Nonreactive (NONREACTIVE) 08/08/16 08:00 Lyme IgG 18 kDa Band Nonreactive 08/07/16 18:55 Lyme IgG 23 kDa Band Nonreactive 08/07/16 18:55 Lyme IgG 28 kDa Band Nonreactive 08/07/16 18:55 Lyme IgG 30 kDa Band Nonreactive 08/07/16 18:55 Lyme IgG 39 kDa Band Nonreactive 08/07/16 18:55 Lyme IgG 41 kDa Band Reactive H 08/07/16 18:55 Lyme IgG 45 kDa Band Nonreactive 08/07/16 18:55 Lyme IgG 58 kDa Band Nonreactive 08/07/16 18:55 Lyme IgG 66 kDa Band Reactive H 08/07/16 18:55 Lyme IgG 93 kDa Band Nonreactive 08/07/16 18:55 Lyme IgG W Blot Interp Negative (Negative) 08/07/16 18:55 Lyme IgM 23 kDa Band Nonreactive 08/07/16 18:55 Lyme IgM 39 kDa Band Nonreactive 08/07/16 18:55 Lyme IgM 41 kDa Band Nonreactive 08/07/16 18:55 Lyme IgM W Blot Interp Negative (Negative) 08/07/16 18:55 Hepatitis A IgM Ab Negative (NEGATIVE) 08/08/16 08:00 Hep Bs Antigen Negative (NEGATIVE) 08/08/16 08:00 Hep B Core IgM Ab Negative (NEGATIVE) 08/08/16 08:00 Hepatitis C Antibody Negative (NEGATIVE) 08/08/16 08:00 HIV 1&2 Antibody Screen Negative (NEGATIVE) 08/08/16 11:19 - Hospital Course Hospital Course: 30 years old female Hx of ulcerative Colitis, Cervical cancer s/p Radio and Chemo therapy, comes with a 3days hx of constant Numbness to the right face, right upper extremity and the right thigh. She awoke with dizziness, the numbness and blurring of the right eye. #. Right sided Numbness with blurring right eye- needs further work up to determine etiology - Consulted Dr Talavera- discussed case - since MRI of brain and C spine and labs are negative- further work up can be done as outpt, he rec to start Neurontin - Initially empirically started on Acyclovir IV - MRI brain : negative - HIV: neg , B12, Folate, RPR, TSH: normal -Lyme ab : negative , West Nile ab: pending #. Ulcerative Colitis not on treatment - Consulted Dr Castro GI- discussed case , rec to ff up as outpt for further work up #. Transaminitis prob related to ETOH pt admits to having large amount of alcohol for 2 days prior to admission - LFT slowly trended down - Hepatitis screen: neg - US of abd : fatty liver - GI consulted #. Skin Rashes most probably secondary to the Ulcerative colitis #. Breast Milk Production. Etiology unclear - MRI of Brain: neg pituitary tumor - Prolactin level: normal #. hx of Cervical cancer s/p Chemo and Radio therapy #. DVT Prophylaxis with SCD Discharge Exam - Head Exam Head Exam: ATRAUMATIC, NORMAL INSPECTION, NORMOCEPHALIC - Eye Exam Eye Exam: EOMI, Normal appearance, PERRL Pupil Exam: NORMAL ACCOMODATION - ENT Exam ENT Exam: Mucous Membranes Moist, Normal External Ear Exam - Neck Exam Neck exam: Full Rom Additional comments: no nuchal rigidity - Respiratory Exam Respiratory Exam: NORMAL BREATHING PATTERN. absent: Respiratory Distress - Cardiovascular Exam Cardiovascular Exam: REGULAR RHYTHM, +S1, +S2 - GI/Abdominal Exam GI & Abdominal Exam: Normal Bowel Sounds, Soft. absent: Tenderness - Extremities Exam Extremities exam: full ROM, normal capillary refill, pedal pulses present - Back Exam Back exam: FULL ROM, NORMAL INSPECTION. 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
[2016-08-09 21:03] LABS: WNV AB IGG 0.08; WNV AB IGM 0.04
== END 2016-08-09 17:50 | disposition home or self-care (01) | DRG 179 ==
LOC: H.ER 16:52 → H.ERHOLD 20:36 → H.TEL 22:02 → OBSVTOIN 08-08 15:24
PROVIDERS: ADMIT Internal Medicine; ATTEND Internal Medicine
DX: K51.80 Other ulcerative colitis without complications (principal); K76.0 Fatty (change of) liver, not elsewhere classified; K52.3 Indeterminate colitis; R74.0 Nonspecific elevation of levels of transaminase and lactic acid dehydrogenase [LDH]; R20.0 Anesthesia of skin; F17.210 Nicotine dependence, cigarettes, uncomplicated; Z88.0 Allergy status to penicillin; Z91.018 Allergy to other foods; Z85.41 Personal history of malignant neoplasm of cervix uteri; Z92.21 Personal history of antineoplastic chemotherapy; Z92.3 Personal history of irradiation; Z87.440 Personal history of urinary (tract) infections

== ENCOUNTER 2016-11-07 18:35 | Observation (INO) | payer MEDICAID ==
[2016-11-07 18:36] VITALS: BMI 20.7
[2016-11-07] MEDS ORDERED: Iohexol 240 (50 ml) PO ONE (19:59)
[2016-11-07] MEDS ORDERED: Morphine 4 MG/ML VIAL IVP STA (20:01)
[2016-11-07] MEDS ORDERED: Sodium Chloride 0.9% 1,000 ML IV STA (20:01)
--- NOTE | 2016-11-07 20:06 | ED PDOC ---
HPI: Abdomen Time Seen by Provider: 11/07/16 18:59 Chief Complaint (Nursing): Female Genitourinary Chief Complaint (Provider): abd pain History Per: Patient History/Exam Limitations: no limitations Onset/Duration Of Symptoms: Days (2 weeks), Gradual, Persistent Outside of [place] travel?: No Current Symptoms Are (Timing): Still Present Location Of Pain/Discomfort: Diffuse (but worse in LLQ) Quality Of Discomfort: Cramping, "Pain" Associated Symptoms: Chills, Nausea, Vomiting, Diarrhea (bloody), Loss Of Appetite, Urinary Symptoms (dysuria and frequency). denies: Fever, Constipation Exacerbating Factors: None Alleviating Factors: None Additional Complaint(s): Started 2 weeks ago but she "dealt with it" and thought it got better, but returned 3 days ago. Similar to previous episodes of Chrohns which she has had for many years Evaluated and admitted here for colitis May 2016. Did not follow up with GI after that. Has not taken any medications for pain. PMD none Past Medical History Reviewed: Historical Data, Nursing Documentation, Vital Signs Vital Signs: Last Vital Signs Temp 98.2 F 11/08/16 02:51 Pulse 80 11/08/16 02:51 Resp 19 11/08/16 02:51 BP 113/60 11/08/16 02:51 Pulse Ox 97 11/08/16 05:06 - Medical History PMH: Crohn's Disease - Surgical History Surgical History: Appendectomy, Tonsillectomy - Family History Family History: States: Other Other Family History: Melanoma, Leukemia - Social History Current smoker - smoking cessation education provided: No Alcohol: Occasional - Home Medications Home Medications: Ambulatory Orders Medication Instructions Recorded Acetaminophen [Tylenol 325mg tab] 650 mg PO Q4 PRN tab 08/09/16 Gabapentin [Neurontin] 100 mg PO Q12 #60 capsule 08/09/16 Multivit/Folic Acid/I 1 tab PO DAILY tab 08/09/16 [] Ciprofloxacin HCl [Cipro] 500 mg PO BID #20 tab 11/08/16 Metronidazole [Flagyl] 500 mg PO TID #30 tablet 11/08/16 - Allergies Allergies/Adverse Reactions: Allergies Allergy/AdvReac Type Severity Reaction Status Date / Time nut - unspecified Allergy RASH Verified 08/07/16 17:14 Penicillins Allergy RASH Verified 08/07/16 17:14 Review of Systems ROS Statement: Except As Marked, All Systems Reviewed And Found Negative (and as per HPI) Constitutional: Positive for: Chills, Weakness, Malaise Gastrointestinal: Positive for: Nausea, Vomiting, Abdominal Pain, Diarrhea, Hematochezia. Negative for: Hematemesis Genitourinary Female: Positive for: Dysuria, Frequency. Negative for: Vaginal Bleeding Physical Exam - Reviewed Nursing Documentation Reviewed: Yes Vital Signs Reviewed: Yes - Physical Exam Appears: Positive for: Non-toxic, In Acute Distress Head Exam: Positive for: ATRAUMATIC, NORMOCEPHALIC Skin: Positive for: Warm, Dry Eye Exam: Positive for: EOMI, PERRL ENT: Positive for: Other (dry muc membrane). Negative for: Pharyngeal Erythema , Tonsillar Exudate Neck: Positive for: Painless ROM, Supple Cardiovascular/Chest: Positive for: Regular Rate, Rhythm, Chest Non Tender. Negative for: Murmur Respiratory: Positive for: Normal Breath Sounds. Negative for: Wheezing, Respiratory Distress Gastrointestinal/Abdominal: Positive for: Bowel Sounds, Soft, Tenderness (mild diffuse). Negative for: Mass, Distended, Guarding, Rebound Back: Positive for: Normal Inspection. Negative for: L CVA Tenderness, R CVA Tenderness Extremity: Positive for: Normal ROM. Negative for: Deformity Lymphatic: Negative for: Adenopathy Neurologic/Psych: Positive for: Alert. Negative for: Motor/Sensory Deficits - Laboratory Results Result Diagrams: 11/07/16 21:06 11/07/16 21:06 - ECG O2 Sat by Pulse Oximetry: 97 ED OBSERVATION - Observation admission statement Patient is being placed in observation because:: Time intensive workup and need for reevaluations over a period of time - Goals of Observation Goals of observation are:: Full ER workup and initiation of treatment if necessary - Progress Note Progress Note: 11/07/16 2100 Labs demonstrate anion gap, elevated transaminases, and elevated blood alcohol level. WBC, Hgb, and Plt are wnl. Pt sleeping comfortably. Pt also now needs to be observed for alcohol intoxication. [address] Sleeping comfortably [address] Christianson pending CT result, sobriety and reassessment Disposition - Clinical Impression Clinical Impression: Abdominal pain, Alcohol intoxication - Disposition Disposition: Transfer of Care Disposition Time: 20:00 Condition: IMPROVED Patient Signed Over To: Theo Christianson
[2016-11-07] MEDS ORDERED: Morphine 4 MG/ML VIAL ONE (20:25)
[2016-11-07 21:10] LABS: BASO # 0.1 K/uL (0.0-0.2); BASO % 1.2 % (0.0-2.0); EOS # 0.3 K/uL (0.0-0.7); EOS % 4.2 % (0.0-4.0); HEMOGLOBIN 13.3 g/dL (12.0-16.0); LYMPH # 2.2 K/uL (1.0-4.3); LYMPH % 36.9 % (20.0-40.0); MEAN CELL VOLUME 99.2 fl (81.0-99.0); MEAN CORPUSCULAR HEMOGLOBIN 32.8 pg (27.0-31.0); MEAN CORPUSCULAR HGB CONC 33.1 g/dL (33.0-37.0); MEAN PLATELET VOLUME 6.8 fl (7.2-11.7); MONO # 0.7 K/uL (0.0-0.8); MONO % 12.1 % (0.0-10.0); NEUT # 2.8 K/uL (1.8-7.0); NEUT % 45.6 % (50.0-75.0); RBC 4.07 Mil/uL (3.80-5.20); RED CELL DISTRIBUTION WIDTH 14.3 % (11.5-14.5); WHITE BLOOD COUNT 6.1 K/uL (4.8-10.8)
[2016-11-07 21:20] LABS: ALB/GLOB RATIO 1.3 (1.0-2.1); ALBUMIN 4.9 g/dL (3.5-5.0); ALT/SGPT 128 U/L (9-52); AST/SGOT 340 U/L (14-36); BLOOD UREA NITROGEN 12 mg/dl (7-17); CALCIUM 9.3 mg/dL (8.4-10.2); GFR AFRICAN-AMERICAN > 60; GFR NON-AFRICAN AMERICAN > 60; LIPASE 83 U/L (23-300)
[2016-11-07] MEDS ORDERED: Iohexol 240 (50 ml) ONE (21:20)
[2016-11-07 21:40] LABS: PROTHROMBIN TIME 10.4 Seconds (9.8-13.1)
[2016-11-07 21:41] LABS: PARTIAL THROMBOPLASTIN TIME 28.8 Seconds (25.6-37.1)
[2016-11-07 21:44] LABS: BARBITURATES, UR NEGATIVE (NEGATIVE); BENZODIAZEPINES, UR NEGATIVE (NEGATIVE); OPIATES, UR NEGATIVE (NEGATIVE); PHENCYCLIDINE, UR NEGATIVE (NEGATIVE)
[2016-11-07] MEDS ORDERED: Multivitamin (MVI) 10 ML, Folic Acid 1 MG, Thiamine 100 MG in Dextrose 5%/0.45% NS 1,00... IV ONE (22:13)
[2016-11-07] MEDS ORDERED: Iohexol 300 100 ML IJ ONE (23:00)
[2016-11-07] MEDS ORDERED: Sodium Chloride 0.9% 50 ML IV ONE (23:01)
[2016-11-07 23:20] LABS: SQUAMOUS EPITHIAL 9 /hpf (0-5); URINE BACTERIA RARE (<OCC); URINE BILIRUBIN NEGATIVE (NEGATIVE); URINE BLOOD SMALL (NEGATIVE); URINE CLARITY CLOUDY (Clear); URINE COLOR YELLOW (YELLOW); URINE GLUCOSE (UA) NEG (Normal); URINE LEUKOCYTE ESTERASE SMALL Leu/uL (Negative); URINE NITRATE POSITIVE (NEGATIVE); URINE PROTEIN NEGATIVE (NEGATIVE); URINE UROBILINOGEN 0.2-1.0 mg/dL (0.2-1.0)
--- NOTE | 2016-11-08 00:12 | ED PDOC ---
- Laboratory Results Result Diagrams: 11/07/16 21:06 11/07/16 21:06 - ECG O2 Sat by Pulse Oximetry: 97 (RA) Pulse Ox Interpretation: Normal Medical Decision Making Medical Decision Making: Time: 00:00 --Patient has been signed out by Shira Garibay MD to oh, pending CT and reevaluation Time: 00:26 CT Abdomen/Pelvis with contrast: FINDINGS: Lower thorax: Right basilar atelectasis. ABDOMEN: Liver: The liver is enlarged, and demonstrates diffuse fatty infiltration. Gallbladder and bile ducts: The gallbladder is only minimally distended, without calcified stones. No significant intra- or extrahepatic biliary ductal dilation. Pancreas: Enhances homogeneously. No ductal dilation. No discrete mass. Spleen: No acute findings. Adrenals: No acute findings. Kidneys and ureters: No acute findings. No hydronephrosis or renal calculi. No discrete solid mass. PELVIS: Bladder: No acute findings. Reproductive: No acute findings. Appendix: Surgically absent. ABDOMEN and PELVIS: Stomach and bowel: No obstruction. Edematous mucosal thickening within the rectum, with surrounding inflammatory change. Peritoneum: No significant fluid collection. No free air. Lymph nodes: No pathologically enlarged lymph nodes. Vasculature: Unremarkable. Bones: No acute fracture. IMPRESSION: Findings suggesting proctitis, as detailed above. Time: 01:27 --Ciprofloxacin 400 mg IV --metronidazole 100 ml IV Time: 03:03 Clinical Impression: Abdominal pain, Alcohol intoxication pt feels better tolerated po informed of all findings pt will follow up with GI stressed importnce of GI follow up Upon provider evaluation patient is medically stable, and requires no further treatment in the ED at this time. Patient will be discharged with Rx for Cipro and Flagyl. Counseling was provided and all questions were answered regarding diagnosis and need for follow up with PMD. There is agreement to discharge plan. Return if symptoms persist or worsen. Scribe Attestation: Documented by Senia Capellan, acting as a scribe for Theo Christianson MD Provider Scribe Attestation: All medical record entries made by the Scribe were at my direction and personally dictated by me. I have reviewed the chart and agree that the record accurately reflects my personal performance of the history, physical exam, medical decision making, and the department course for this patient. I have also personally directed, reviewed, and agree with the discharge instructions and disposition. Disposition Doctor Will See Patient In The: Office Counseled Patient/Family Regarding: Studies Performed, Diagnosis, Need For Followup, Rx Given - Clinical Impression Clinical Impression: Abdominal pain, Alcohol intoxication - POA Present On Arrival: None - Disposition Disposition: Routine/Home Disposition Time: 05:06 Condition: IMPROVED
--- NOTE | 2016-11-08 00:27 | CT ---
EXAM: CT Abdomen and Pelvis With Intravenous Contrast CLINICAL HISTORY: 30 years old, female; Pain and condition or disease; Other: Ulcer. Colitis, crohn's disease; Abdominal pain; Generalized; Prior surgery; Surgery date: 6+ months; Surgery type: Append. Removed; Patient HX: HX. Of cervical ca. / chemo, (stated in patient"s HX. ); Additional info: Abd pain h/o chrohns TECHNIQUE: Axial computed tomography images of the abdomen and pelvis with intravenous contrast. All CT scans at this facility use one or more dose reduction techniques, viz.: automated exposure control; ma/kV adjustment per patient size (including targeted exams where dose is matched to indication; i.e. head); or iterative reconstruction technique. Coronal and sagittal reformatted images were created and reviewed. CONTRAST: 90 mL of [id number] administered intravenously. COMPARISON: CT - ABD PELVIS PO IV CONTRAST 05/30/2016 10:42:48 PM FINDINGS: Lower thorax: Right basilar atelectasis. ABDOMEN: Liver: The liver is enlarged, and demonstrates diffuse fatty infiltration. Gallbladder and bile ducts: The gallbladder is only minimally distended, without calcified stones. No significant intra- or extrahepatic biliary ductal dilation. Pancreas: Enhances homogeneously. No ductal dilation. No discrete mass. Spleen: No acute findings. Adrenals: No acute findings. Kidneys and ureters: No acute findings. No hydronephrosis or renal calculi. No discrete solid mass. PELVIS: Bladder: No acute findings. Reproductive: No acute findings. Appendix: Surgically absent. ABDOMEN and PELVIS: Stomach and bowel: No obstruction. Edematous mucosal thickening within the rectum, with surrounding inflammatory change. Peritoneum: No significant fluid collection. No free air. Lymph nodes: No pathologically enlarged lymph nodes. Vasculature: Unremarkable. Bones: No acute fracture. IMPRESSION: Findings suggesting proctitis, as detailed above.
[2016-11-08] MEDS ORDERED: Ciprofloxacin 400mg/200ml D5W 400 MG/200 ML BAG IVPB STA (01:27)
[2016-11-08] MEDS ORDERED: metroNIDAZOLE 500mg/100ml NS 100 ML IVPB SCH (01:30)
[2016-11-08 02:53] VITALS: BP 113/60; PULSE 80; RESP 19; TEMP 98.2
[2016-11-08] MEDS ORDERED: Ciprofloxacin 400mg/200ml D5W 400 MG/200 ML BAG IVPB ONE (02:53)
[2016-11-08] MEDS ORDERED: metroNIDAZOLE 500mg/100ml NS 100 ML IVPB ONE (02:53)
[2016-11-08 03:07] VITALS: O2SAT 97
== END 2016-11-08 03:00 | disposition home or self-care (01) ==
LOC: H.ER 18:35 → H.EROBSV 20:00
PROVIDERS: ADMIT Emergency Medicine; ATTEND Emergency Medicine
DX: R10.32 Left lower quadrant pain (principal); K50.90 Crohn's disease, unspecified, without complications; F10.129 Alcohol abuse with intoxication, unspecified; Y90.8 Blood alcohol level of 240 mg/100 ml or more; Z88.0 Allergy status to penicillin; Z91.018 Allergy to other foods

== ENCOUNTER 2017-03-06 16:58 | Emergency (ER) | payer MEDICAID ==
[2017-03-06 16:58] VITALS: BMI 20.7
--- NOTE | 2017-03-06 18:22 | ED PDOC ---
HPI: Chest Pain Time Seen by Provider: 03/06/17 17:14 Chief Complaint (Nursing): Chest Pain Chief Complaint (Provider): Chest Pain History Per: Patient History/Exam Limitations: no limitations Onset/Duration Of Symptoms: Days (x 5) Current Symptoms Are (Timing): Still Present Context: Travel ([place]) Additional Complaint(s): Lizeth Bender is a 31 year old female who presents to the ED complaining of chest pain, onset 5 days. Associated symptoms shortness of breath and mild cough. Pain is constant. She also reports body aches, headache, epigastric pain , a fever that has resolved, mild diarrhea and an episode of vomiting once within the last 5 days. She was treated 3 weeks ago for pneumonia and is worried she has it again. Patient has also recently returned from a month in traveling in [place]. She has no other complaints. PMD: Dr. Ana Martinez MD Past Medical History Reviewed: Historical Data Vital Signs: Last Vital Signs Temp 97.9 F 03/06/17 20:35 Pulse 95 H 03/06/17 20:35 Resp 18 03/06/17 20:35 BP 128/65 03/06/17 20:35 Pulse Ox 98 03/08/17 09:50 - Medical History PMH: Crohn's Disease Denies: Chronic Kidney Disease - Surgical History Surgical History: Appendectomy, Tonsillectomy - Family History Family History: States: No Known Family Hx - Social History Current smoker - smoking cessation education provided: Yes (Light Smoker < 10 Cigarettes Daily) Alcohol: None Drugs: Denies - Home Medications Home Medications: Ambulatory Orders Medication Instructions Recorded Acetaminophen [Tylenol 325mg tab] 650 mg PO Q4 PRN tab 08/09/16 Gabapentin [Neurontin] 100 mg PO Q12 #60 capsule 08/09/16 Multivit/Folic Acid/I 1 tab PO DAILY tab 08/09/16 [] Ciprofloxacin HCl [Cipro] 500 mg PO BID #20 tab 11/08/16 Metronidazole [Flagyl] 500 mg PO TID #30 tablet 11/08/16 - Allergies Allergies/Adverse Reactions: Allergies Allergy/AdvReac Type Severity Reaction Status Date / Time nut - unspecified Allergy RASH Verified 03/06/17 17:09 Penicillins Allergy RASH Verified 03/06/17 17:09 GENEVA Risk Score for UA/NSTEMI - GENEVA Risk Score Age > 64: NO 3 or more CAD Risk Factors: NO Known CAD (Stenosis greater than 50%): NO Aspirin use in past 7 days: NO Severe Angina: NO EKG ST changes greater than 0.5mm: NO Positive Cardiac Marker: NO GENEVA Score: 0 Risk %: 5% Wells Criteria for PE - Wells Criteria for Pulmonary Embolism Clinical Signs and Symptoms of DVT: No P.E is #1 Diagnosis, or Equally Likely: No Heart Rate >100: No Immobilization at least 3 days;Surgery previous 4 weeks: No Previous, objectively diagnosed PE or DVT: No Hemoptysis: No Malignancy w/treatment within 6 months, or palliative: No Total Score: 0 Review of Systems ROS Statement: Except As Marked, All Systems Reviewed And Found Negative Constitutional: Positive for: Fever Cardiovascular: Positive for: Chest Pain Respiratory: Positive for: Cough (mild), Shortness of Breath Gastrointestinal: Positive for: Vomiting (once), Diarrhea Musculoskeletal: Positive for: Other (body aches) Physical Exam - Reviewed Nursing Documentation Reviewed: Yes Vital Signs Reviewed: Yes - Physical Exam Appears: Positive for: Non-toxic, No Acute Distress Head Exam: Positive for: ATRAUMATIC, NORMOCEPHALIC Skin: Positive for: Normal Color, Warm, Dry Eye Exam: Positive for: EOMI, Other (subconjuctival hemorrhage in right eye) Neck: Positive for: Normal, Painless ROM, Supple Cardiovascular/Chest: Positive for: Regular Rate, Rhythm. Negative for: Murmur Respiratory: Positive for: Normal Breath Sounds. Negative for: Respiratory Distress Gastrointestinal/Abdominal: Positive for: Normal Exam, Soft. Negative for: Tenderness Back: Positive for: Normal Inspection. Negative for: L CVA Tenderness, R CVA Tenderness, Vertebral Tenderness Extremity: Positive for: Normal ROM. Negative for: Pedal Edema, Deformity Neurologic/Psych: Positive for: Alert, Oriented. Negative for: Motor/Sensory Deficits - Laboratory Results Result Diagrams: 03/06/17 18:23 03/06/17 18:23 - ECG ECG: Positive for: Interpreted By Me, Viewed By Me ECG Rhythm: Positive for: Normal QRS, Normal ST Segment, Sinus Rhythm. Negative for: ST/T Changes Rate: 105 O2 Sat by Pulse Oximetry: 98 (RA) Pulse Ox Interpretation: Normal - Radiology X-Ray: Viewed By Me, Read By Radiologist X-Ray Interpretation: No Acute Disease Medical Decision Making Medical Decision Making: Time: 17:33 Impression: chest pain, fever, headaches, body aches Differential diagnoses: influenza, viral syndrome consider pulmonary embolism Initial Plan: --EKG --BMP --Troponin I --CBC --D dimer --Chest X-ray --Blood culture --Influenza A B Time:18:25 Chest X-ray FINDINGS: LUNGS: Mild bibasilar atelectasis. No focal consolidation. Please note that chest x-ray has limited sensitivity for the detection of pulmonary masses. PLEURA: No significant pleural effusion identified. No definite pneumothorax . CARDIOVASCULAR: Heart size appears within normal limits. OSSEOUS STRUCTURES: Degenerative changes. VISUALIZED UPPER ABDOMEN: Unremarkable. OTHER FINDINGS: None. IMPRESSION: Hypoinflation. Mild bibasilar atelectasis. Time: 18:55 --Angio Chest CT PE protocol --Toradol 15 mg IVP Time: 19:00 --Patient to be transferred to Dr. Christianson, pending Angio Chest CT Scribe Attestation: Documented by Vee Burks, acting as a scribe for Vanna Farnsworth MD Provider Scribe Attestation: All medical record entries made by the Scribe were at my direction and personally dictated by me. I have reviewed the chart and agree that the record accurately reflects my personal performance of the history, physical exam, medical decision making, and the department course for this patient. I have also personally directed, reviewed, and agree with the discharge instructions and disposition. Disposition - Clinical Impression Clinical Impression: Chest pain - Patient ED Disposition Is Patient to be Admitted: Transfer of Care - Disposition Referrals: [facility] [Outside] [facility] [Outside] Disposition: Transfer of Care Disposition Time: 19:00 Condition: STABLE Additional Instructions: follow up with your primary doctor in 1-2 days return to the ED with any worsening or concerning symptoms. Instructions: Chest Pain (ED) Forms: [employer] ([place]) Patient Signed Over To: Theo Christianson
--- NOTE | 2017-03-06 18:26 | RAD ---
HISTORY: chest pain COMPARISON: Chest x-ray performed 05/31/16 TECHNIQUE: Chest PA and lateral FINDINGS: LUNGS: Mild bibasilar atelectasis. No focal consolidation. Please note that chest x-ray has limited sensitivity for the detection of pulmonary masses. PLEURA: No significant pleural effusion identified. No definite pneumothorax . CARDIOVASCULAR: Heart size appears within normal limits. OSSEOUS STRUCTURES: Degenerative changes. VISUALIZED UPPER ABDOMEN: Unremarkable. OTHER FINDINGS: None. IMPRESSION: Hypoinflation. Mild bibasilar atelectasis.
[2017-03-06 18:27] LABS: BASO # 0.1 K/uL (0.0-0.2); BASO % 1.4 % (0.0-2.0); EOS # 0.1 K/uL (0.0-0.7); EOS % 1.4 % (0.0-4.0); HEMOGLOBIN 13.3 g/dL (12.0-16.0); LYMPH # 1.6 K/uL (1.0-4.3); LYMPH % 31.2 % (20.0-40.0); MEAN CELL VOLUME 98.7 fl (81.0-99.0); MEAN CORPUSCULAR HEMOGLOBIN 32.4 pg (27.0-31.0); MEAN CORPUSCULAR HGB CONC 32.8 g/dL (33.0-37.0); MEAN PLATELET VOLUME 6.9 fl (7.2-11.7); MONO # 0.5 K/uL (0.0-0.8); MONO % 9.9 % (0.0-10.0); NEUT # 2.9 K/uL (1.8-7.0); NEUT % 56.1 % (50.0-75.0); NRBC % 0.1 % (0.0-0.0); RBC 4.1 Mil/uL (3.80-5.20); RED CELL DISTRIBUTION WIDTH 13.5 % (11.5-14.5); WHITE BLOOD COUNT 5.2 K/uL (4.8-10.8)
[2017-03-06 18:47] LABS: BLOOD UREA NITROGEN 7 mg/dl (7-17); CALCIUM 9.9 mg/dL (8.4-10.2); GFR AFRICAN-AMERICAN > 60; GFR NON-AFRICAN AMERICAN > 60
[2017-03-06] MEDS ORDERED: Iodixanol 320 MG/ML 100 ML BOTTLE IV ONE (19:02)
--- NOTE | 2017-03-06 19:24 | ED PDOC ---
- Laboratory Results Result Diagrams: 03/06/17 18:23 03/06/17 18:23 - ECG O2 Sat by Pulse Oximetry: 98 (RA) Medical Decision Making Medical Decision Making: Time: 19:00 --patient transferred to sc pending results of Angio Chest CT Time: 19:57 FINDINGS: Heart, Aorta and Pulmonary arteries: The heart is mildly enlarged. There is no pericardial effusion.There is no aneurysm or dissection. There is perfusion of the 3 arch vessels. There are no central pulmonary emboli. Allowing for bolus timing and motion, no peripheral emboli are identified. Lungs and Pleural spaces: Trachea and main bronchi are patent. There is no pneumothorax. There are asymmetric groundglass opacities bilaterally. There is no lobar or segmental consolidation. There is dependent atelectasis. There are no effusions. Mediastinum: The esophagus is unremarkable. There are no pathologically enlarged mediastinal or hilar nodes. There is a hiatal hernia. Thyroid: Thyroid is only partially imaged. Bones/joints: There are no acute osseous abnormalities. Soft tissues: unremarkable Upper abdomen: There are no acute abnormalities in the visualized portion of the abdomen. There is fatty infiltration of the liver. Liver is incompletely imaged but appears enlarged. IMPRESSION: No aneurysm, dissection or pulmonary embolus; low lung volumes, no focal infiltrate; enlarged fatty liver Time: 20:16 --Reviewed by me, CT results are negative. Upon provider evaluation patient is medically stable, and requires no further treatment in the ED at this time. Patient will be discharged home. There is agreement to discharge plan. Return if symptoms persist or worsen. Scribe Attestation: Documented by Vee Burks, acting as a scribe for Theo Christianson MD Provider Scribe Attestation: All medical record entries made by the Scribe were at my direction and personally dictated by me. I have reviewed the chart and agree that the record accurately reflects my personal performance of the history, physical exam, medical decision making, and the department course for this patient. I have also personally directed, reviewed, and agree with the discharge instructions and disposition. Disposition Counseled Patient/Family Regarding: Studies Performed, Diagnosis, Need For Followup - Clinical Impression Clinical Impression: Chest pain - POA Present On Arrival: None - Disposition Referrals: [facility] [Outside] formerly [facility] [Outside] Disposition: Routine/Home Disposition Time: 20:18 Condition: IMPROVED Additional Instructions: follow up with your primary doctor in 1-2 days return to the ED with any worsening or concerning symptoms. Instructions: Chest Pain (ED) Forms: [employer] (Chinese)
--- NOTE | 2017-03-06 19:57 | CT ---
EXAM: CT Angiography Chest With Intravenous Contrast EXAM DATE/TIME: 03/06/2017 6:57 PM CLINICAL HISTORY: 31 years old, female; Pain; Chest pain; Type not specified TECHNIQUE: Axial computed tomographic angiography images of the chest with intravenous contrast using pulmonary embolism protocol. All CT scans at this facility use one or more dose reduction techniques, viz.: automated exposure control; ma/kV adjustment per patient size (including targeted exams where dose is matched to indication; i.e. head); or iterative reconstruction technique. MIP reconstructed images were created and reviewed. Coronal and sagittal reformatted images were created and reviewed. CONTRAST: 70 mL of visipaque administered intravenously. COMPARISON: There are no prior studies for comparison. FINDINGS: Heart, Aorta and Pulmonary arteries: The heart is mildly enlarged. There is no pericardial effusion.There is no aneurysm or dissection. There is perfusion of the 3 arch vessels. There are no central pulmonary emboli. Allowing for bolus timing and motion, no peripheral emboli are identified. Lungs and Pleural spaces: Trachea and main bronchi are patent. There is no pneumothorax. There are asymmetric groundglass opacities bilaterally. There is no lobar or segmental consolidation. There is dependent atelectasis. There are no effusions. Mediastinum: The esophagus is unremarkable. There are no pathologically enlarged mediastinal or hilar nodes. There is a hiatal hernia. Thyroid: Thyroid is only partially imaged. Bones/joints: There are no acute osseous abnormalities. Soft tissues: unremarkable Upper abdomen: There are no acute abnormalities in the visualized portion of the abdomen. There is fatty infiltration of the liver. Liver is incompletely imaged but appears enlarged. IMPRESSION: No aneurysm, dissection or pulmonary embolus; low lung volumes, no focal infiltrate; enlarged fatty liver Additional findings as described above.
[2017-03-06 20:55] VITALS: BP 128/65; RESP 18; TEMP 97.9
--- NOTE | 2017-03-07 17:51 | CARD ---
APPROVED REPORT EKG Measurement Heart [id number] <Conclusion> Sinus tachycardia Otherwise normal ECG
[2017-03-08 09:51] VITALS: O2SAT 98
[2017-03-09 10:36] VITALS: PULSE 105
== END 2017-03-06 21:02 | disposition home or self-care (01) ==
LOC: H.ER 16:58
DX: R07.9 Chest pain, unspecified (principal); K50.90 Crohn's disease, unspecified, without complications; F17.210 Nicotine dependence, cigarettes, uncomplicated; Z88.0 Allergy status to penicillin
CPT/HCPCS: 71020; 71275; 80048; 81025; 84484; 85025; 85378; 87040; 87804; 93005; 96374; 96375; 99282; J1885; J2405; Q9967